=== PATIENT | male | born 1960 | race Caucasian/White ===

== ENCOUNTER 2020-01-03 14:09 | Observation (INO) | payer OTHER, SELFPAY ==
[2020-01-03 14:22] VITALS: BP 176/97; PULSE 117; RESP 16; TEMP 37.7; O2SAT 98; BMI 29.2
--- NOTE | 2020-01-03 14:51 | PC.NURSE ---
right side patients face swollen,red and painful since yesterday. Pt saw pcp today on [place],given IM antibiotics and then told to come here to ED for further evaluation.
[2020-01-03 15:26] LABS: Add Manual Diff / Slide Review NO; Basophils Absolute Auto 0 /uL (0-100); Basophils Percent Auto 0.3 % (0-2); Eosinophils Absolute Auto 0 /uL (0-450); Hematocrit 43.4 % (41-53); Hemoglobin 14.8 g/dL (13.5-17.5); Lymphocytes Absolute Auto 600 /uL (1100-4500); Lymphocytes Percent Auto 4.7 % (25-40); Mean Corpuscular HGB Conc 34.1 % (30-36); Mean Corpuscular Hemoglobin 30.8 PG (26-34); Mean Corpuscular Volume 90.1 fL (80-100); Monocytes Absolute Auto 700 /uL (0-900); Monocytes Percent Auto 5.8 % (3-14); Neutrophils Absolute Auto 11600 /uL (1500-7000); Neutrophils Percent Auto 89.2 % (50-75); Platelet Count 192 X10^3/uL (150-400); Red Blood Cell Count 4.82 X10^6/uL (4.5-5.9); Red Cell Distribution Width 13.9 % (11.6-14.8)
[2020-01-03] MEDS: ONDANSETRON 4 MG/2 ML INJ IV (15:27)
[2020-01-03] MEDS: MORPHINE 4 MG/ML INJ IV ×2 (15:27→16:38)
[2020-01-03 15:38] LABS: Alanine Aminotransferase 36 IU/L (<50); Albumin 4.7 g/dL (3.5-5.0); Albumin Globulin Ratio 1.6 (1.0-2.8); Alkaline Phosphatase 77 U/L (38-126); Aspartate Aminotransferase 35 IU/L (17-59); BUN Creatinine Ratio 19.5 (6-22); Blood Urea Nitrogen 24 mg/dL (9-20); Calcium 9.3 mg/dL (8.4-10.2); Carbon Dioxide 23 mmol/L (22-32); Chloride 102 mmol/L (98-107); Estimated Glomerular Filt Rate > 60.0 mL/min (>60); Globulin 2.9 g/dL (1.7-4.1); Glucose 123 mg/dL (80-110); HEMOLYSIS 16 (0-50); Lactate (Lactic Acid) 1.2 mmol/L (0.7-2.1); Potassium 4.1 mmol/L (3.4-5.1); Sodium 135 mmol/L (137-145); Total Protein 7.6 g/dL (6.3-8.2)
--- NOTE | 2020-01-03 16:02 | DI.CT.S_ITS ---
PROCEDURE: CT SOFT TISSUE NECK WO/W CON INDICATIONS: to include parotids TECHNIQUE: Before and after the administration of intravenous contrast, 2.0 mm axial sections acquired through the neck and down to the cotres. Additional 2.0 mm coronal and sagittal reformats were generated of the contrast enhanced images. For radiation dose reduction, the following was used: automated exposure control. COMPARISON: None. FINDINGS: Image quality: Excellent. Thyroid: Negative Lymph nodes: No enlarged lymph nodes seen throughout the neck. Vessels: Visualized vasculature appears patent. Neck spaces: The oropharynx, nasopharynx, and pharynx demonstrate no mucosal lesions. The vocal cords, false vocal cords, pyriform sinuses, epiglottis, vallecula, and tongue base all appear normal. Extramucosal spaces appear unremarkable. Glands: The left parotid gland appears unremarkable. There is diffuse inflammation of the right parotid gland and adjacent edema and soft tissue stranding. No discrete abscess is seen. There is presumed subcentimeter reactive intra-and periparotid lymph nose without pathologic enlargement. No definite sialolithiasis Miscellaneous: Visualized lungs appear clear. Superficial soft tissues appear normal. The Bones: No suspicious bony lesions. Cervical spondylosis. Visualized sinuses and mastoids appear unremarkable. IMPRESSION: Right parotiditis. Please correlate clinically. No definite sialolithiasis identified Dictated by: Marlon Kirk M.D. on 01/03/2020 at 16:56 Approved by: Marlon Kirk M.D. on 01/03/2020 at 17:05
[2020-01-03 16:09] LABS: Procalcitonin < 0.05 ng/mL (<0.5)
[2020-01-03 16:37] VITALS: BP 180/95; PULSE 114; RESP 20; O2SAT 99
[2020-01-03 17:26] LABS: Amylase 139 U/L (30-110); Lipase 63 U/L (23-300)
[2020-01-03] MEDS: HYDROMORPHONE 0.5 MG INJ IV (18:00)
[2020-01-03] MEDS: SODIUM CHLORIDE 0.9% 1,000 ML 1000 ML IV (18:00)
--- NOTE | 2020-01-03 18:01 | ED_ITS ---
HPI - URI/Sore Throat <STEVAN Allen - Last Filed: 01/03/20 20:30> General Chief Complaint: Dental/Oral Stated Complaint: right side of face 9-10 since yesterday Time Seen by Provider: 01/03/20 14:53 Source: patient and family Mode of arrival: Ambulatory Limitations: no limitations History of Present Illness HPI Narrative: The patient is a 59-year-old male nonsmoker with history of CABG who presents for chief complaint of a swollen erythematous parotid gland on his right side. He was seen by his PCP on 1 of the [facility], is concerned about parotitis and gave him 1 g of Rocephin. He complains of low-grade fevers, muscle aches chills and sweats as well as rigors last night. He states he cannot fully open his mouth. He took an half a Percocet and it did not help him feel better. Denies any sore throat. Related Data Home Medications Medication Instructions Recorded Confirmed metoprolol tartrate 12.5 mg PO BID 01/03/20 01/03/20 Previous Rx's Medication Instructions Recorded ciprofloxacin HCl 750 mg PO BID 14 Days #28 tab 01/04/20 ciprofloxacin HCl 750 mg PO BID 14 Days #28 tab 01/04/20 clindamycin HCl 450 mg PO TID 14 Days #126 cap 01/04/20 clindamycin HCl 450 mg PO TID 14 Days #126 cap 01/04/20 prednisone See Rx Instructions .ROUTE 01/04/20 .COMPLEX #10 tab Allergies Allergy/AdvReac Type Severity Reaction Status Date / Time [id number] Reductase AdvReac Unknown Verified 01/03/20 16:17 Inhibitor Review of Systems <STEVAN Allen - Last Filed: 01/03/20 20:30> Review of Systems Narrative: GENERAL: See HPI HEENT: See HPI RESPIRATORY: Denies dyspnea, cough, wheezing, hemoptysis, sputum. CARDIOVASCULAR: Denies chest pain, palpitations, orthopnea, edema, GASTROINTESTINAL: Denies nausea, vomiting, abdominal pain, diarrhea, constipation, melena. : Denies dysuria, frequency, incontinence, hematuria, urinary retention. MUSCULOSKELETAL: denies weakness, joint pain, or bony pain SKIN: Denies rash, skin lesions, or other NEUROLOGIC: Denies weakness, headache, numbness, change in speech, confusion, seizures, incoordination. PSYCHIATRIC: No concerning psychosocial issues. 12 point review of systems is negative except for those stated above Patient History <STEVAN Allen - Last Filed: 01/03/20 20:30> Medical History CAD (coronary artery disease) (Acute) Surgical History (Updated 01/03/20 @ 21:56 by Felicitas Razo MD) H/O hand surgery (Acute) H/O nasal septoplasty (Acute) H/O shoulder surgery (Acute) History of coronary artery bypass graft (Acute) Family History (Updated 01/03/20 @ 21:57 by Felicitas Razo MD) Father Alcohol abuse Dementia Mother IPF (idiopathic pulmonary fibrosis) Social History household members: spouse Smoking Status: Never smoker alcohol intake: current Smoking Status: Never smoker Substance Use Type: does not use Exam <STEVAN Allen - Last Filed: 01/03/20 20:30> Narrative Exam Narrative: GENERAL: This is a well-nourished, well-developed patient, appears uncomfortable HEAD: Atraumatic. Normocephalic. No temporal or scalp tenderness. EYES: Pupils equal round and reactive. Extraocular motions intact. No scleral icterus. No injection or drainage. ENT: Nose without bleeding, purulent drainage or septal hematoma. Throat without erythema, tonsillar hypertrophy or exudate unable to open mouth all the way. Uvula midline. Airway patent. Pain to palpation of right preauricular parotid, with slight overlying erythema as well as swelling. NECK: Trachea midline. No JVD or lymphadenopathy. Supple, nontender, no meningeal signs. CARDIOVASCULAR: Regular rate and rhythm without murmurs, gallops, or rubs. RESPIRATORY: Clear to auscultation. Breath sounds equal bilaterally. No wheezes, rales, or rhonchi. No cough. No increased respiratory effort. No accessory muscle use. GASTROINTESTINAL: Abdomen soft, non-tender, nondistended. No hepato- splenomegaly, or palpable masses. No guarding. EXTREMITIES: No clubbing, cyanosis, or edema. No joint tenderness, effusion, or edema noted. BACK: Nontender without deformity or crepitance. No flank tenderness. NEURO: AOx3. SKIN: No rash or erythema on visible skin other than ENT exam Initial Vital Signs Initial Vital Signs: Vital Signs Temperature 99.9 F H 01/03/20 14:22 Pulse Rate 117 H 01/03/20 14:22 Respiratory Rate 16 01/03/20 14:22 Blood Pressure 176/97 H 01/03/20 14:22 Pulse Oximetry 98 01/03/20 14:22 <Sabiha Molina DO - Last Filed: 01/15/20 08:33> Initial Vital Signs Initial Vital Signs: Vital Signs Temperature 99.9 F H 01/03/20 14:22 Pulse Rate 117 H 01/03/20 14:22 Respiratory Rate 16 01/03/20 14:22 Blood Pressure 176/97 H 01/03/20 14:22 Pulse Oximetry 98 01/03/20 14:22 Scores <STEVAN Allen - Last Filed: 01/03/20 20:30> GCS [place] coma scale eye opening: Spontaneous [place] coma scale verbal response: Orientated [place] coma scale motor response: Obey commands [place] coma scale total score: 15 Course <STEVAN Allen - Last Filed: 01/03/20 20:30> Orders Ordered: Discontinued Medications Dexamethasone (Decadron) 12 mg IV NOW ONE Stop: 01/03/20 18:25 Last Admin: 01/03/20 18:45 Dose: 12 mg Documented by: JENNIFER Dexamethasone (Decadron) 4 mg IV Q12HR COUNT INCLUDES THE [facility] Last Admin: 01/04/20 11:58 Dose: 4 mg Documented by: Admin: 01/03/20 23:58 Dose: 4 mg Documented by: SARAH Enoxaparin Sodium (Lovenox) 40 mg SUBCUT DAILY COUNT INCLUDES THE [facility] Last Admin: 01/04/20 08:23 Dose: 40 mg Documented by: DIPTI Hydromorphone HCl (Dilaudid) 0.5 mg IV NOW ONE Stop: 01/03/20 17:32 Last Admin: 01/03/20 18:00 Dose: 0.5 mg Documented by: JENNIFER Hydromorphone HCl (Dilaudid) 0.5 mg IV Q4H PRN PRN Reason: Pain, Moderate (4-6) Sodium Chloride (Normal Saline 0.9%) 1,000 mls @ 1,000 mls/hr IV BOLUS ONE Stop: 01/03/20 18:53 Last Infusion: 01/03/20 19:15 Dose: 0 mls/hr Documented by: Admin: 01/03/20 18:00 Dose: 1,000 mls/hr Documented by: JENNIFER Ampicillin Sodium/Sulbactam (Sodium 3 gm/ Sodium Chloride) 100 mls @ 100 mls/hr IV NOW ONE Stop: 01/03/20 18:21 Last Infusion: 01/03/20 19:15 Dose: 0 mls/hr Documented by: Admin: 01/03/20 18:45 Dose: 100 mls/hr Documented by: JENNIFER Sodium Chloride (Normal Saline 0.45%) 1,000 mls @ 100 mls/hr IV CONT COUNT INCLUDES THE [facility] Last Admin: 01/03/20 21:17 Dose: 100 mls/hr Documented by: LETTY Ampicillin Sodium/Sulbactam (Sodium 1.5 gm/ Sodium Chloride) 100 mls @ 100 mls/hr IV Q6H COUNT INCLUDES THE [facility] Last Admin: 01/04/20 11:58 Dose: 100 mls/hr Documented by: Infusion: 01/04/20 07:27 Dose: 0 mls/hr Documented by: Admin: 01/04/20 06:06 Dose: 100 mls/hr Documented by: Infusion: 01/04/20 06:05 Dose: 0 mls/hr Documented by: Admin: 01/04/20 00:02 Dose: 100 mls/hr Documented by: SARAH Metoprolol Tartrate (Lopressor) 12.5 mg PO BID COUNT INCLUDES THE [facility] Last Admin: 01/04/20 08:23 Dose: 12.5 mg Documented by: Admin: 01/03/20 21:17 Dose: 12.5 mg Documented by: LETTY Morphine Sulfate (Morphine) 4 mg IV NOW ONE Stop: 01/03/20 15:08 Last Admin: 01/03/20 15:27 Dose: 4 mg Documented by: JENNIFER Morphine Sulfate (Morphine) 4 mg IV NOW ONE Stop: 01/03/20 16:33 Last Admin: 01/03/20 16:38 Dose: 4 mg Documented by: JONAS Naloxone HCl (Narcan) 0.2 mg IV Q2MIN PRN PRN Reason: Opiate Reversal Ondansetron HCl (Zofran) 4 mg IV NOW ONE Stop: 01/03/20 15:08 Last Admin: 01/03/20 15:27 Dose: 4 mg Documented by: JENNIFER Oxycodone HCl (Percolone) 5 mg PO Q6HR PRN PRN Reason: Pain, Moderate (4-6) Consultations Consultation #1: Spoke with Dr. Salazar from [facility] regarding the patient and his imaging findings. He suggest admission, IV Unasyn, steroids. Discussed with patient was in accordance. Waiting call from hospitalist. Time: 18:34 Vital Signs Vital signs: Vital Signs - 8 hr 01/03/20 14:22 01/03/20 16:37 01/03/20 19:14 Temperature 99.9 F H 98.9 F Pulse Rate 117 H 114 H 114 H Respiratory Rate 16 20 Blood Pressure 176/97 H Blood Pressure [Right Arm] 180/95 H 144/86 H Pulse Oximetry 98 99 95 <Sabiha Molina DO - Last Filed: 01/15/20 08:33> Orders Ordered: Discontinued Medications Dexamethasone (Decadron) 12 mg IV NOW ONE Stop: 01/03/20 18:25 Last Admin: 01/03/20 18:45 Dose: 12 mg Documented by: JENNIFER Dexamethasone (Decadron) 4 mg IV Q12HR COUNT INCLUDES THE [facility] Last Admin: 01/04/20 11:58 Dose: 4 mg Documented by: Admin: 01/03/20 23:58 Dose: 4 mg Documented by: SARAH Enoxaparin Sodium (Lovenox) 40 mg SUBCUT DAILY COUNT INCLUDES THE [facility] Last Admin: 01/04/20 08:23 Dose: 40 mg Documented by: DIPTI Hydromorphone HCl (Dilaudid) 0.5 mg IV NOW ONE Stop: 01/03/20 17:32 Last Admin: 01/03/20 18:00 Dose: 0.5 mg Documented by: JENNIFER Hydromorphone HCl (Dilaudid) 0.5 mg IV Q4H PRN PRN Reason: Pain, Moderate (4-6) Sodium Chloride (Normal Saline 0.9%) 1,000 mls @ 1,000 mls/hr IV BOLUS ONE Stop: 01/03/20 18:53 Last Infusion: 01/03/20 19:15 Dose: 0 mls/hr Documented by: Admin: 01/03/20 18:00 Dose: 1,000 mls/hr Documented by: JENNIFER Ampicillin Sodium/Sulbactam (Sodium 3 gm/ Sodium Chloride) 100 mls @ 100 mls/hr IV NOW ONE Stop: 01/03/20 18:21 Last Infusion: 01/03/20 19:15 Dose: 0 mls/hr Documented by: Admin: 01/03/20 18:45 Dose: 100 mls/hr Documented by: JENNIFER Sodium Chloride (Normal Saline 0.45%) 1,000 mls @ 100 mls/hr IV CONT COUNT INCLUDES THE [facility] Last Admin: 01/03/20 21:17 Dose: 100 mls/hr Documented by: LETTY Ampicillin Sodium/Sulbactam (Sodium 1.5 gm/ Sodium Chloride) 100 mls @ 100 mls/hr IV Q6H COUNT INCLUDES THE [facility] Last Admin: 01/04/20 11:58 Dose: 100 mls/hr Documented by: Infusion: 01/04/20 07:27 Dose: 0 mls/hr Documented by: Admin: 01/04/20 06:06 Dose: 100 mls/hr Documented by: Infusion: 01/04/20 06:05 Dose: 0 mls/hr Documented by: Admin: 01/04/20 00:02 Dose: 100 mls/hr Documented by: SARAH Metoprolol Tartrate (Lopressor) 12.5 mg PO BID COUNT INCLUDES THE [facility] Last Admin: 01/04/20 08:23 Dose: 12.5 mg Documented by: Admin: 01/03/20 21:17 Dose: 12.5 mg Documented by: LETTY Morphine Sulfate (Morphine) 4 mg IV NOW ONE Stop: 01/03/20 15:08 Last Admin: 01/03/20 15:27 Dose: 4 mg Documented by: JENNIFER Morphine Sulfate (Morphine) 4 mg IV NOW ONE Stop: 01/03/20 16:33 Last Admin: 01/03/20 16:38 Dose: 4 mg Documented by: JONAS Naloxone HCl (Narcan) 0.2 mg IV Q2MIN PRN PRN Reason: Opiate Reversal Ondansetron HCl (Zofran) 4 mg IV NOW ONE Stop: 01/03/20 15:08 Last Admin: 01/03/20 15:27 Dose: 4 mg Documented by: JENNIFER Oxycodone HCl (Percolone) 5 mg PO Q6HR PRN PRN Reason: Pain, Moderate (4-6) Vital Signs Vital signs: Vital Signs - 8 hr 01/03/20 14:22 01/03/20 16:37 01/03/20 19:14 Temperature 99.9 F H 98.9 F Pulse Rate 117 H 114 H 114 H Respiratory Rate 16 20 Blood Pressure 176/97 H Blood Pressure [Right Arm] 180/95 H 144/86 H Pulse Oximetry 98 99 95 MDM - URI/Sore Throat <CHLOÉ Allen- - Last Filed: 01/03/20 20:30> Lab Data Result diagrams: 01/04/20 06:10 01/04/20 06:10 Labs: Lab Results 01/03/20 01/03/20 01/03/20 Range/Units 15:10 15:10 15:10 WBC 13.0 H (4.5-11.0) X10^3/uL RBC 4.82 (4.5-5.9) X10^6/uL Hgb 14.8 (13.5-17.5) g/dL Hct 43.4 (41-53) % MCV 90.1 (80-100) fL MCH 30.8 (26-34) PG MCHC 34.1 (30-36) % RDW 13.9 (11.6-14.8) % Plt Count 192 (150-400) X10^3/uL Neut % (Auto) 89.2 H (50-75) % Lymph % (Auto) 4.7 L (25-40) % [place] % (Auto) 5.8 (3-14) % Eos % (Auto) 0.0 L (2-4) % Baso % (Auto) 0.3 (0-2) % Neut # (Auto) 74582 H (1000-9537) /uL Lymph # (Auto) 600 L (1189-5019) /uL [place] # (Auto) 700 (0-900) /uL Eos # (Auto) 0 (0-450) /uL Baso # (Auto) 0 (0-100) /uL Sodium 135 L (137-145) mmol/L Potassium 4.1 (3.4-5.1) mmol/L Chloride 102 (98-107) mmol/L Carbon Dioxide 23 (22-32) mmol/L BUN 24 H (9-20) mg/dL Creatinine 1.23 (0.66-1.25) mg/dL Estimated GFR > 60.0 (>60) mL/min BUN/Creatinine Ratio 19.5 (6-22) Glucose 123 H (80-110) mg/dL Lactate (0.7-2.1) mmol/L Calcium 9.3 (8.4-10.2) mg/dL Total Bilirubin 1.0 (0.2-1.3) mg/dL AST 35 (17-59) IU/L ALT 36 (<50) IU/L Alkaline Phosphatase 77 (38-126) U/L Total Protein 7.6 (6.3-8.2) g/dL Albumin 4.7 (3.5-5.0) g/dL Globulin 2.9 (1.7-4.1) g/dL Albumin/Globulin Ratio 1.6 (1.0-2.8) Amylase (30-110) U/L Lipase (23-300) U/L Procalcitonin < 0.05 (<0.5) ng/mL 01/03/20 01/03/20 Range/Units 15:10 15:22 WBC (4.5-11.0) X10^3/uL RBC (4.5-5.9) X10^6/uL Hgb (13.5-17.5) g/dL Hct (41-53) % MCV (80-100) fL MCH (26-34) PG MCHC (30-36) % RDW (11.6-14.8) % Plt Count (150-400) X10^3/uL Neut % (Auto) (50-75) % Lymph % (Auto) (25-40) % [place] % (Auto) (3-14) % Eos % (Auto) (2-4) % Baso % (Auto) (0-2) % Neut # (Auto) (5904-4190) /uL Lymph # (Auto) (5049-4655) /uL [place] # (Auto) (0-900) /uL Eos # (Auto) (0-450) /uL Baso # (Auto) (0-100) /uL Sodium (137-145) mmol/L Potassium (3.4-5.1) mmol/L Chloride (98-107) mmol/L Carbon Dioxide (22-32) mmol/L BUN (9-20) mg/dL Creatinine (0.66-1.25) mg/dL Estimated GFR (>60) mL/min BUN/Creatinine Ratio (6-22) Glucose (80-110) mg/dL Lactate 1.2 (0.7-2.1) mmol/L Calcium (8.4-10.2) mg/dL Total Bilirubin (0.2-1.3) mg/dL AST (17-59) IU/L ALT (<50) IU/L Alkaline Phosphatase (38-126) U/L Total Protein (6.3-8.2) g/dL Albumin (3.5-5.0) g/dL Globulin (1.7-4.1) g/dL Albumin/Globulin Ratio (1.0-2.8) Amylase 139 H (30-110) U/L Lipase 63 (23-300) U/L Procalcitonin (<0.5) ng/mL Imaging Data Soft tissue neck CT: Radiologist's Impression: [address] [place] [address] CT Scan Report Signed Patient: Donald Talley [facility]#: [id number] : 9Acct:[id number] Age/Sex: 59 / MDate of Service: 01/03/20 Loc: ED Accession Number: [id number] Procedure: CT soft tissue neck wo/w con Ordering Provider: Monica Araiza [facility] PROCEDURE: CT SOFT TISSUE NECK WO/W CON INDICATIONS: to include parotids TECHNIQUE: Before and after the administration of intravenous contrast, 2.0 mm axial sections acquired through the neck and down to the cortes. Additional 2.0 mm coronal and sagittal reformats were generated of the contrast enhanced images. For radiation dose reduction, the following was used: automated exposure control. COMPARISON: None. FINDINGS: Image quality: Excellent. Thyroid: Negative Lymph nodes: No enlarged lymph nodes seen throughout the neck. Vessels: Visualized vasculature appears patent. Neck spaces: The oropharynx, nasopharynx, and pharynx demonstrate no mucosal lesions. The vocal cords, false vocal cords, pyriform sinuses, epiglottis, vallecula, and tongue base all appear normal. Extramucosal spaces appear unremarkable. Glands: The left parotid gland appears unremarkable. There is diffuse inflammation of the right parotid gland and adjacent edema and soft tissue stranding. No discrete abscess is seen. There is presumed subcentimeter reactive intra-and periparotid lymph nose without pathologic enlargement. No definite sialolithiasis Miscellaneous: Visualized lungs appear clear. Superficial soft tissues appear normal. The Bones: No suspicious bony lesions. Cervical spondylosis. Visualized sinuses and mastoids appear unremarkable. IMPRESSION: Right parotiditis. Please correlate clinically. No definite sialolithiasis identified Dictated by: Marlon Kirk M.D. on 01/03/2020 at 16:56 Approved by: Marlon Kirk M.D. on 01/03/2020 at 17:05 [facility] Narrative Medical decision making narrative: The patient is a 59-year-old male who presents with a chief complaint of swollen painful right side of his face. CT indicates parotiditis. The patient is also tachycardic, with rigors. I spoke with Dr. Salazar from ENT who suggested Unasyn and steroids, which the patient was given. He felt much better after the above-stated therapies including Dilaudid and Zofran as well. I spoke with Dr Razo, hospitalists regarding the admission for the patient who kindly agreed to admit the patient patient states understanding and has been hemodynamically stable throughout his stay in the emergency department. <Sabiha Molina, DO - Last Filed: 01/15/20 08:33> Lab Data Labs: Lab Results 01/03/20 01/03/20 01/03/20 Range/Units 15:10 15:10 15:10 WBC 13.0 H (4.5-11.0) X10^3/uL RBC 4.82 (4.5-5.9) X10^6/uL Hgb 14.8 (13.5-17.5) g/dL Hct 43.4 (41-53) % MCV 90.1 (80-100) fL MCH 30.8 (26-34) PG MCHC 34.1 (30-36) % RDW 13.9 (11.6-14.8) % Plt Count 192 (150-400) X10^3/uL Neut % (Auto) 89.2 H (50-75) % Lymph % (Auto) 4.7 L (25-40) % [place] % (Auto) 5.8 (3-14) % Eos % (Auto) 0.0 L (2-4) % Baso % (Auto) 0.3 (0-2) % Neut # (Auto) 79606 H (6368-1945) /uL Lymph # (Auto) 600 L (8404-3161) /uL [place] # (Auto) 700 (0-900) /uL Eos # (Auto) 0 (0-450) /uL Baso # (Auto) 0 (0-100) /uL Sodium 135 L (137-145) mmol/L Potassium 4.1 (3.4-5.1) mmol/L Chloride 102 (98-107) mmol/L Carbon Dioxide 23 (22-32) mmol/L BUN 24 H (9-20) mg/dL Creatinine 1.23 (0.66-1.25) mg/dL Estimated GFR > 60.0 (>60) mL/min BUN/Creatinine Ratio 19.5 (6-22) Glucose 123 H (80-110) mg/dL Lactate (0.7-2.1) mmol/L Calcium 9.3 (8.4-10.2) mg/dL Total Bilirubin 1.0 (0.2-1.3) mg/dL AST 35 (17-59) IU/L ALT 36 (<50) IU/L Alkaline Phosphatase 77 (38-126) U/L Total Protein 7.6 (6.3-8.2) g/dL Albumin 4.7 (3.5-5.0) g/dL Globulin 2.9 (1.7-4.1) g/dL Albumin/Globulin Ratio 1.6 (1.0-2.8) Amylase (30-110) U/L Lipase (23-300) U/L Procalcitonin < 0.05 (<0.5) ng/mL 01/03/20 01/03/20 Range/Units 15:10 15:22 WBC (4.5-11.0) X10^3/uL RBC (4.5-5.9) X10^6/uL Hgb (13.5-17.5) g/dL Hct (41-53) % MCV (80-100) fL MCH (26-34) PG MCHC (30-36) % RDW (11.6-14.8) % Plt Count (150-400) X10^3/uL Neut % (Auto) (50-75) % Lymph % (Auto) (25-40) % [place] % (Auto) (3-14) % Eos % (Auto) (2-4) % Baso % (Auto) (0-2) % Neut # (Auto) (3804-3816) /uL Lymph # (Auto) (6883-7181) /uL [place] # (Auto) (0-900) /uL Eos # (Auto) (0-450) /uL Baso # (Auto) (0-100) /uL Sodium (137-145) mmol/L Potassium (3.4-5.1) mmol/L Chloride (98-107) mmol/L Carbon Dioxide (22-32) mmol/L BUN (9-20) mg/dL Creatinine (0.66-1.25) mg/dL Estimated GFR (>60) mL/min BUN/Creatinine Ratio (6-22) Glucose (80-110) mg/dL Lactate 1.2 (0.7-2.1) mmol/L Calcium (8.4-10.2) mg/dL Total Bilirubin (0.2-1.3) mg/dL AST (17-59) IU/L ALT (<50) IU/L Alkaline Phosphatase (38-126) U/L Total Protein (6.3-8.2) g/dL Albumin (3.5-5.0) g/dL Globulin (1.7-4.1) g/dL Albumin/Globulin Ratio (1.0-2.8) Amylase 139 H (30-110) U/L Lipase 63 (23-300) U/L Procalcitonin (<0.5) ng/mL Discharge Plan Departure Patient Disposition: Admitted as Observation Clinical Impression: Parotiditis Discharge Date/Time: 01/03/20 20:19 Instructions: Parotitis, DI for Parotitis-Adult, DI for Prescription Opioid Use Referrals: Donald Salazar MD [Physician] - 2 Weeks Madhu Lares MD [Primary Care Provider] - Admit Date/Time: 01/03/20 20:33 Admit Provider: Felicitas Razo
[2020-01-03] MEDS: AMPICILLIN/SULBACTAM 3 GM 3 GM in SODIUM CHLORIDE 0.9% 100 ML IV (18:45)
[2020-01-03] MEDS: DEXAMETHASONE 10 MG/ML VIAL 12 MG IV (18:45)
[2020-01-03 19:14] VITALS: BP 144/86; PULSE 114; TEMP 37.2; O2SAT 95
[2020-01-03 20:25] VITALS: BP 148/91; PULSE 109; RESP 17; TEMP 36.5; O2SAT 94
[2020-01-03 20:37] VITALS: BMI 29.2
--- NOTE | 2020-01-03 20:52 | P.HP_ITS ---
History of Present Illness History of Present Illness Date Patient Seen: 01/03/20 Time Patient Seen: 20:54 Date of Onset of Symptoms: 01/02/20 Chief complaint: right side of face 9-10 pain since yesterday Narrative: This is a 59 year old male with right facial pain starting yesterday. His WBC is 13.0 with a Lactate of 1.2 and Amylase of 135. The CT shows parotiditis without definite stone seen. There is no hypotension but he has had severe chills and shakes along with a temperature of 99.9. He had been napping on the right side when the pain started. He was unable to sleep all night. Per discussion with Dr. Salazar, ENT, he will be observed overnight on Unasyn and Dexamethasone due to the rapid onset and potential severity of his condition. He lives on [facility]. Patient History Medical History CAD (coronary artery disease) (Acute) Surgical History (Updated 01/03/20 @ 21:56 by Felicitas Razo MD) H/O hand surgery (Acute) H/O nasal septoplasty (Acute) H/O shoulder surgery (Acute) History of coronary artery bypass graft (Acute) Family & Social History Family History (Updated 01/03/20 @ 21:57 by Felicitas Razo MD) Father Alcohol abuse Dementia Mother IPF (idiopathic pulmonary fibrosis) Social History: household members spouse Prior Living Arrangements House Safety & Behavioral: Feels Safe in Current Yes Environment Been Physically Hurt or No Threatened By a Person Suicidal Ideation Description None Suicide Plan Description No Plan Tobacco & Substance use: Smoking Status Never smoker alcohol intake current alcohol intake frequency holiday/special occasion Substance Use Type does not use Comment: His back up decision maker is Mayelin Talley. 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 His PCP is Dr. Madhu Thibodeaux Home Medications and Allergies Home Medications Medication Instructions Recorded Confirmed Type metoprolol tartrate 12.5 mg PO BID 01/03/20 01/03/20 History Allergies Allergy/AdvReac Type Severity Reaction Status Date / Time [id number]-Yka Reductase AdvReac Unknown Verified 01/03/20 16:17 Inhibitor Review of Systems Review of Systems Narrative: No coughing, chest pain, N/V, Abdominal pain, seizures, rashes, joint pain, headaches, difficulty talking/walking, sore throat, new allergies, bleeding, dysuria Positive for facial pain, shaking, chills, fevers. ROS: Yes All systems reviewed with the patient and are negative except as otherwise documented Exam Vital Signs (past 8 hours): - 01/03/20 14:22 01/03/20 16:37 01/03/20 19:14 Temperature 99.9 F H 98.9 F Pulse Rate 117 H 114 H 114 H Respiratory Rate 16 20 Blood Pressure 176/97 H Blood Pressure [Right Arm] 180/95 H 144/86 H Pulse Oximetry 98 99 95 01/03/20 20:25 Temperature 97.7 F Pulse Rate 109 H Respiratory Rate 17 Blood Pressure 148/91 H Blood Pressure [Right Arm] Pulse Oximetry 94 Oxygen Delivery Method Room Air Oxygen Flow Rate 0 Narrative Exam Narrative: Alert and oriented X 3 No apparent distress Throat looks normal. The inside of the right side of the mouth is quite swollen but this does not invade the airway or crowd the tongue. No lymph nodes are felt on the left side of the neck. There is lymph swelling on the right side of the neck. There is no thyromegaly JVD is less than 6 cm No carotid bruits are heard The entire right parotid and preauricular area is swollen and tender. Heart is regular rate and rhythm without murmur. Lungs are clear to auscultation bilaterally Abdomen is soft, bowel sounds positive, nontender, no organomegaly. Extremities have no ankle edema Neurological exam Cranial nerves 2-12 test intact There is no tremor No lack of motor function is detected Skin has no rash or jaundice Objective Labs Result Diagrams: 01/03/20 15:10 01/03/20 15:10 Labs: Laboratory Results - last 24 hr 01/03/20 01/03/20 01/03/20 15:10 15:10 15:10 WBC 13.0 H RBC 4.82 Hgb 14.8 Hct 43.4 MCV 90.1 MCH 30.8 MCHC 34.1 RDW 13.9 Plt Count 192 Neut % (Auto) 89.2 H Lymph % (Auto) 4.7 L [place] % (Auto) 5.8 Eos % (Auto) 0.0 L Baso % (Auto) 0.3 Neut # (Auto) 88738 H Lymph # (Auto) 600 L [place] # (Auto) 700 Eos # (Auto) 0 Baso # (Auto) 0 Sodium 135 L Potassium 4.1 Chloride 102 Carbon Dioxide 23 BUN 24 H Creatinine 1.23 Estimated GFR > 60.0 BUN/Creatinine Ratio 19.5 Glucose 123 H Lactate Calcium 9.3 Total Bilirubin 1.0 AST 35 ALT 36 Alkaline Phosphatase 77 Total Protein 7.6 Albumin 4.7 Globulin 2.9 Albumin/Globulin Ratio 1.6 Amylase Lipase Procalcitonin < 0.05 01/03/20 01/03/20 15:10 15:22 WBC RBC Hgb Hct MCV MCH MCHC RDW Plt Count Neut % (Auto) Lymph % (Auto) [place] % (Auto) Eos % (Auto) Baso % (Auto) Neut # (Auto) Lymph # (Auto) [place] # (Auto) Eos # (Auto) Baso # (Auto) Sodium Potassium Chloride Carbon Dioxide BUN Creatinine Estimated GFR BUN/Creatinine Ratio Glucose Lactate 1.2 Calcium Total Bilirubin AST ALT Alkaline Phosphatase Total Protein Albumin Globulin Albumin/Globulin Ratio Amylase 139 H Lipase 63 Procalcitonin Assessment & Plan Assessment & Plan narrative: Acute Parotiditis, present on admission, acute -WBC 13.0, Lactate 1.2 and Amylase 135. -Begin on Unasyn and Dexamethasone per ENT rec. -Transition to oral antibiotics and discharge home as early as 01/03 if improving readily. -Continue on IVF. Coronary Artery Disease, present on admission, chronic -Continue Metoprolol -He has a complicated history of his coronary arteries being imbedded in his myocardium, requiring stenting after CABG when the grafts failed. 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 Quality VTE Deep Vein Thrombosis/Pulmonary Embolism Present on Admission: No
[2020-01-03] MEDS: SODIUM CHLORIDE 0.45% 1,000 ML 100 ML IV (21:17)
[2020-01-03] MEDS: METOPROLOL IR 25 MG TABLET 12.5 MG PO (21:17)
--- NOTE | 2020-01-03 22:23 | PC.ADMIT ---
[address] [place] [address] Admission Note: The patient,Donald Talley,59 y/o, was given written information regarding hospital policies, unit procedures and contact persons. Patient's smoking status: Never smoker. Vital Signs - 8 hr 01/03/20 16:37 01/03/20 19:14 01/03/20 20:25 Temperature 98.9 F 97.7 F Pulse Rate 114 H 114 H 109 H Respiratory Rate 20 17 Blood Pressure 148/91 H Blood Pressure [Right Arm] 180/95 H 144/86 H Pulse Oximetry 99 95 94 Patient up from ED via wheelchair. Patient was able to get out of wheelchair on own, gait very steady. Patient A&O, calm and cooperative.
[2020-01-03] MEDS: DEXAMETHASONE 4 MG/ML VIAL IV (23:58)
[2020-01-04] MEDS: AMPICILLIN/SULBACTAM 1.5 GM 1.5 GM in SODIUM CHLORIDE 0.9% 100 ML IV ×3 (00:02→11:58)
[2020-01-04 00:11] VITALS: BP 127/81; PULSE 83; RESP 16; TEMP 36.9; O2SAT 98
[2020-01-04 04:53] VITALS: BP 135/87; PULSE 79; RESP 16; TEMP 36.5; O2SAT 96
[2020-01-04 06:38] LABS: Add Manual Diff / Slide Review NO; Basophils Absolute Auto 0 /uL (0-100); Basophils Percent Auto 0.1 % (0-2); Eosinophils Absolute Auto 0 /uL (0-450); Hematocrit 41.2 % (41-53); Lymphocytes Absolute Auto 900 /uL (1100-4500); Lymphocytes Percent Auto 8.1 % (25-40); Mean Corpuscular Volume 91.2 fL (80-100); Monocytes Absolute Auto 300 /uL (0-900); Monocytes Percent Auto 2.9 % (3-14); Neutrophils Absolute Auto 9800 /uL (1500-7000); Neutrophils Percent Auto 88.9 % (50-75); Platelet Count 170 X10^3/uL (150-400); Red Blood Cell Count 4.52 X10^6/uL (4.5-5.9); Red Cell Distribution Width 14.2 % (11.6-14.8)
[2020-01-04 06:50] LABS: BUN Creatinine Ratio 21.4 (6-22); Blood Urea Nitrogen 22 mg/dL (9-20); Calcium 8.8 mg/dL (8.4-10.2); Carbon Dioxide 23 mmol/L (22-32); Chloride 105 mmol/L (98-107); Estimated Glomerular Filt Rate > 60.0 mL/min (>60); Glucose 182 mg/dL (80-110); HEMOLYSIS < 15 (0-50); Potassium 4.5 mmol/L (3.4-5.1); Sodium 136 mmol/L (137-145)
[2020-01-04] MEDS: METOPROLOL IR 25 MG TABLET 12.5 MG PO (08:23)
[2020-01-04] MEDS: ENOXAPARIN 40 MG/0.4 ML SYRINGE SUBCUT (08:23)
[2020-01-04 08:29] VITALS: BP 147/86; PULSE 73; RESP 14; TEMP 36.1; O2SAT 95
--- NOTE | 2020-01-04 10:27 | CM.DANOTE ---
DCP Assessment and Discharge Home Patient is a 59 year old male who was admitted for Right Face Pain. Pt has [facility] for insurance and his PCP is Dr. Madhu Lares. EMR was reviewed. Per MD, pt stable for d/c home later today on oral abx and follow up with ENT. SW met bedside with pt and explained role during MD rounds bedside and pt confirms that he lives at home on [facility] with his spouse and is independent with ADL's at baseline and works and does not use equipment to ambulate and still drives. Pt denies any hx of HH or SNF. Per RN, pt to have last IV-Abx dose today around 1230 in order to catch the ferry to [place] with priority boarding pass on the [address]. Pt confirms that spouse is in [place] picking up pt's medications and food for home and will provide transport home today and no concerns. Plan: Patient to d/c home to [facility] today via spouse POV on the [address] ferry with oral abx. No SW needs at this time. TANNER Garcia
[2020-01-04] MEDS: DEXAMETHASONE 4 MG/ML VIAL IV (11:58)
--- NOTE | 2020-01-04 12:57 | PC.NURSE ---
Addendum entered by Clara Howell R.N. 01/04/20 13:43: IV abx infused without issue. PIV removed. Rx ready at [facility]. Pt left with with RN escort to car. Original Note: Discharge Pt states pain is tolerable at 2/10 and declines any medication. D/c instructions provided to pt and his . Rx originially sent to [facility], they were out of 3/4 medications. MD resent Rx to [facility] in [facility]. 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 Pt aware to f/u with . Pt will check with assistant auto center manager about taking his injectable medication with steroids and abx. Infusing last dose of unasyn currently. PIV to be removed prior to d/c.
--- NOTE | 2020-01-04 18:24 | PM.DS.1 ---
History of Present Illness History of Present Illness Date Patient Seen: 01/04/20 Time Patient Seen: 08:15 Chief complaint: right side of face 9-10 pain since yesterday Narrative: As per Dr. Razo, This is a 59 year old male with right facial pain starting yesterday. His WBC is 13.0 with a Lactate of 1.2 and Amylase of 135. The CT shows parotiditis without definite stone seen. There is no hypotension but he has had severe chills and shakes along with a temperature of 99.9. He had been napping on the right side when the pain started. He was unable to sleep all night. Per discussion with Dr. Salazar, ENT, he will be observed overnight on Unasyn and Dexamethasone due to the rapid onset and potential severity of his condition. He lives on [facility]. Discharge Providers Provider Date of admission: 01/03/20 20:33 Discharge Date: 01/04/20 Primary care physician: Madhu Lares MD Discharge provider: Unruly Vargas DO Summary Hospital Course Discharge Diagnosis: Please see hospital course by problem list noted below Hospital Course: 1. Acute Parotiditis, present on admission, acute -Patient was started on Unasyn and Dexamethasone per ENT rec. He improved the next morning. His swelling had come down, he had no airway compromise and was tolerating PO intake. He was discharged home on ciprofloxacin and clindamycin as well as a short steroid taper and pain control. He should follow up with ENT as an outpatient. 2. Coronary Artery Disease, present on admission, chronic -Continue home medications -He has a complicated history of his coronary arteries being imbedded in his myocardium, requiring stenting after CABG when the grafts failed. 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 He had no symptoms while admitted. Exam Vital Signs (past 8 hours): Oxygen Delivery Method Room Air Oxygen Flow Rate 0 Narrative Exam Narrative: GENERAL APPEARANCE: Well developed, well nourished, in no acute distress. SKIN: Inspection of the skin reveals no rashes, ulcerations or petechiae. HEENT: Normocephalic atraumatic, extraocular muscles are intact, oropharynx is clear and mucous membranes are moist. R parotid swelling with mild overlying erythema and tenderness, improved from admission. NECK: Supple and symmetric. There was no thyroid enlargement, mild R sided tender lymphadenopathy, improving. CHEST: Normal AP diameter and normal contour without any kyphoscoliosis. LUNGS: Auscultation of the lungs revealed no wheezes, rhonchi, or rales. CARDIOVASCULAR: There was a regular rate and rhythm without any murmurs, gallops, rubs. Peripheral pulses were 2+ and symmetric. ABDOMEN: Soft and nontender with normal bowel sounds. No ascites was noted. MUSCULOSKELETAL: There was no tenderness or effusions noted. Muscle strength and tone were normal. EXTREMITIES: No cyanosis, clubbing or edema. NEUROLOGIC: Alert and oriented x 3. Normal affect. Gait was normal. Strength is +5/5 in the Upper Extremities and Lower Extremities Bilaterally. Sensation to touch was normal. Objective Labs Result Diagrams: 01/04/20 06:10 01/04/20 06:10 Labs: Laboratory Results - last 24 hr 01/04/20 01/04/20 06:10 06:10 WBC 11.0 RBC 4.52 Hgb 14.0 Hct 41.2 MCV 91.2 MCH 31.0 MCHC 34.0 RDW 14.2 Plt Count 170 Neut % (Auto) 88.9 H Lymph % (Auto) 8.1 L [place] % (Auto) 2.9 L Eos % (Auto) 0.0 L Baso % (Auto) 0.1 Neut # (Auto) 9800 H Lymph # (Auto) 900 L [place] # (Auto) 300 Eos # (Auto) 0 Baso # (Auto) 0 Sodium 136 L Potassium 4.5 Chloride 105 Carbon Dioxide 23 BUN 22 H Creatinine 1.03 Estimated GFR > 60.0 BUN/Creatinine Ratio 21.4 Glucose 182 H Calcium 8.8 Discharge Plan Discharge Plan Patient Disposition: Home Discharge comment: You were admitted to the hospital with swelling in your parotid gland. You improved with antibiotics and steroids. Please do not hesitate to return if symptoms return or pain is unable to be controlled. Please continue sour hard candies or other such items Discharge orders & Medications Prescriptions: New clindamycin HCl 150 mg capsule 450 mg PO TID 14 Days Qty: 126 RF: 0 ciprofloxacin HCl 750 mg tablet 750 mg PO BID 14 Days Qty: 28 RF: 0 prednisone 10 mg tablet See Rx Instructions .ROUTE .COMPLEX Qty: 10 RF: 0 oxycodone 5 mg tablet 5 mg PO Q6H PRN (Reason: pain) 7 Days Qty: 20 RF: 0 ciprofloxacin HCl 750 mg tablet 750 mg PO BID 14 Days Qty: 28 RF: 0 clindamycin HCl 150 mg capsule 450 mg PO TID 14 Days Qty: 126 RF: 0 oxycodone 5 mg tablet 5 mg PO Q8H PRN (Reason: pain) 7 Days Qty: 20 RF: 0 Continued metoprolol tartrate 25 mg Tablet 12.5 mg PO BID RF: 0 Follow up/Referrals: Donald Salazar MD [Physician] - 2 Weeks Madhu Lares MD [Primary Care Provider] - Visit Report/Discharge Packet Instructions: Parotitis, DI for Parotitis-Adult, DI for Prescription Opioid Use Visit Report Forms: Patient Portal/API, Stroke Signs & Symptoms Discharge Data Primary Care Provider: Madhu Lares Attending Provider: Felicitas Razo Admit Date/Time: 01/03/20 20:33 Discharges patient from system. Discharge Date/Time: 01/04/20 13:35 Quality VTE Deep Vein Thrombosis/Pulmonary Embolism Present on Admission: No
== END 2020-01-04 13:35 | disposition home or self-care (01) ==
LOC: ED 20:27 → AC 20:34
PROVIDERS: Admitting Provider Family Medicine; Emergency Provider Nurse Practitioner Family; PCP Family Medicine; Visit Provider Family Medicine
DX: K11.21 Acute sialoadenitis (principal); G50.1 Atypical facial pain; Z95.1 Presence of aortocoronary bypass graft; I25.10 Atherosclerotic heart disease of native coronary artery without angina pectoris
CPT/HCPCS: 36415; 70492; 80048; 80053; 82150; 83605; 83690; 84145; 85025; 87040; 96365; 96366; 96372; 96375; 96376; 99284; G0378; J0295; J1100; J1170; J1650; J2270; J2405; J7050; Q9967